=== PATIENT | female | born 1990 | race American Indian/Alaskan Native ===

== ENCOUNTER 2018-11-11 14:27 | Emergency (ER) | payer MEDICAID, OTHER ==
[2018-11-11 14:39] VITALS: BP 134/88
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
--- NOTE | 2018-11-11 17:48 | XRay Report ---
FINAL REPORT EXAM: XR CHEST ROUTINE 2V HISTORY: cp TECHNIQUE: Two view chest PA and lateral PRIORS: None. FINDINGS: Cardiac and mediastinal contours are unremarkable. No focal pulmonary infiltrate is identified. No pleural fluid collection seen. Pulmonary vasculature is unremarkable. IMPRESSION: Negative two-view chest
== END 2018-11-11 17:46 | disposition home or self-care (01) ==
LOC: ED 14:27
DX: O9A.23 Injury, poisoning and certain other consequences of external causes complicating the puerperium (principal); S09.90XA Unspecified injury of head, initial encounter; R07.89 Other chest pain; V89.2XXA Person injured in unspecified motor-vehicle accident, traffic, initial encounter; Y93.89 Activity, other specified; Y92.488 Other paved roadways as the place of occurrence of the external cause; Y99.8 Other external cause status
CPT/HCPCS: 70450; 71046; 93005; 93010; 99284